=== PATIENT | male | born 1960 | race Caucasian/White ===

== ENCOUNTER 2024-05-17 08:43 | Outpatient (CLI) | payer BC, MEDICARE ==
[~2024-05-17] VITALS: Ht 177.8 cm; Wt 104.3 kg
[2024-05-17] MEDS: albuterol 2.5 MG/3 ML nebule NEB ONE (09:16)
[2024-05-17 09:17] VITALS: PULSE 79; RESP 15; O2SAT 97
[2024-05-17 09:28] VITALS: PULSE 74; RESP 15
== END 2024-05-17 23:59 | disposition home or self-care (01) ==
LOC: RT 08:43
PROVIDERS: ATTEND Family Medicine
DX: R06.02 Shortness of breath (principal); R06.2 Wheezing
CPT/HCPCS: 94060; 94760